=== PATIENT | female | born 1935 | race Caucasian/White ===

== ENCOUNTER 2021-10-31 14:45 | Emergency (ER) | payer MEDICARE ==
[2021-10-31 15:03] VITALS: TEMP 98
[2021-10-31] MEDS ORDERED: SODIUM CHLORIDE 0.9% 1,000 ML IV STA (15:54)
[2021-10-31 16:34] LABS: Basophils % (A) 0 %; Eosinophils % (A) 0 %; HCT 40.3 % (34.0-46.0); HGB 13.3 gm/dL (11.4-16.0); Lymphocytes # (A) 0.6 k/uL (1.0-4.8); Lymphocytes % (A) 12 %; MCH 31.3 pg (25.0-35.0); MCV 94.8 fL (80.0-100.0); Mean Platelet Volume 8.2; Monocytes # (A) 0.3 k/uL (0-1.0); Monocytes % (A) 6 %; Neutrophils % (A) 81 %; Platelet Count 175 k/uL (150-450); RBC 4.26 m/uL (3.80-5.40); RDW 13.5 % (11.5-15.5); WBC 4.9 k/uL (3.8-10.6)
[2021-10-31 16:48] LABS: ALT 20 U/L (4-34); AST 38 U/L (14-36); African American GFR (CKD) >90 (>60 ml/min/1.73 sqM); Albumin 3.2 g/dL (3.5-5.0); Alkaline Phosphatase 83 U/L (38-126); Anion Gap 7 mmol/L; Blood Urea Nitrogen 9 mg/dL (7-17); Carbon Dioxide 23 mmol/L (22-30); Chloride 96 mmol/L (98-107); Glucose 119 mg/dL (74-99); Magnesium 1.6 mg/dL (1.6-2.3); Non-African American GFR(CKD) 88 (>60 ml/min/1.73 sqM); Sodium 126 mmol/L (137-145); Total Bilirubin 0.4 mg/dL (0.2-1.3); Total Protein 5.9 g/dL (6.3-8.2)
[2021-10-31 16:49] LABS: Partial Thromboplastin Time 27.2 sec (22.0-30.0); Prothrombin Time 10.3 sec (9.0-12.0)
[2021-10-31 16:56] LABS: Potassium 3.9 mmol/L (3.5-5.1)
--- NOTE | 2021-10-31 17:11 | XR ---
EXAMINATION TYPE: XR chest 2V DATE OF EXAM: 10/31/2021 COMPARISON: NONE HISTORY: Dizziness TECHNIQUE: 2 views FINDINGS: Heart is enlarged. There is no heart failure. There are no hilar masses. There is slight co arsening of interstitial markings. IMPRESSION: No active cardiopulmonary disease. No heart failure.
[2021-10-31] MEDS ORDERED: ONDANSETRON 4 MG/2 ML VIAL IVP STA ×2 (17:29→19:37)
[2021-10-31 17:47] LABS: Appearance,Urine Clear (Clear); Bilirubin,Urine Negative (Negative); Blood,Urine Negative (Negative); Color,Urine Light Yellow; Glucose,Urine (UA) Negative (Negative); Ketones,Urine Trace (Negative); Leukocyte Esterase,Urine Negative (Negative); Nitrite,Urine Negative (Negative); Protein,Urine Negative (Negative); Specific Gravity,Urine 1.002 (1.001-1.035); Urobilinogen,Urine <2.0 mg/dL (<2.0)
--- NOTE | 2021-10-31 19:26 | ED ---
Dizziness HPI - General Chief Complaint: Syncope Stated Complaint: syncope Time Seen by Provider: 10/31/21 15:53 Source: patient, family, EMS, RN notes reviewed Mode of arrival: EMS Limitations: physical limitation - History of Present Illness Initial Comments: Patient is an 85-year-old female that presents to the emergency Department due to a syncopal episode. Patient's daughter notes the patient got out of the shower was sitting in a chair and just fainted. Patient is Covid-positive 3 days. She notes that she just feels weak and out of it. She notes that she fell couple weeks ago also. Patient denied any other issues or complaints. Daughter notes that she is eating and drinking better than she was prior to her previous hospital visit. Patient notes that she tried eating some soup today but puked it up. Patient otherwise looked well but mildly uncomfortable laying in bed. Patient denied chest pain shortness of breath headache diarrhea constipation fever fatigue chills. - Related Data Allergies Allergy/AdvReac Type Severity Reaction Status Date / Time Sulfa (Sulfonamide Allergy Rash/Hives Verified 10/31/21 16:21 Antibiotics) Review of Systems ROS Statement: Those systems with pertinent positive or pertinent negative responses have been documented in the HPI. ROS Other: All systems not noted in ROS Statement are negative. Past Medical History Past Medical History: No Reported History History of Any Multi-Drug Resistant Organisms: None Reported Past Surgical History: No Surgical Hx Reported Smoking Status: Never smoker Past Alcohol Use History: None Reported Past Drug Use History: None Reported General Exam Limitations: physical limitation General appearance: alert, in no apparent distress Head exam: Present: atraumatic, normocephalic, normal inspection Eye exam: Present: normal appearance, PERRL, EOMI. Absent: scleral icterus, conjunctival injection, periorbital swelling ENT exam: Present: normal exam, mucous membranes moist Neck exam: Present: normal inspection Respiratory exam: Present: normal lung sounds bilaterally. Absent: respiratory distress, wheezes, rales, rhonchi, stridor Cardiovascular Exam: Present: regular rate, normal rhythm, normal heart sounds. Absent: systolic murmur, diastolic murmur, rubs, gallop, clicks GI/Abdominal exam: Present: soft, normal bowel sounds. Absent: distended, tenderness, guarding, rebound, rigid Extremities exam: Present: normal inspection, full ROM, normal capillary refill. Absent: tenderness, pedal edema, joint swelling, calf tenderness Neurological exam: Present: alert, oriented X3 Psychiatric exam: Present: normal affect, normal mood Skin exam: Present: warm, dry, intact, normal color. Absent: rash Course Vital Signs 10/31/21 10/31/21 14:55 18:03 Temperature 98 F Pulse Rate 67 67 Respiratory 20 17 Rate Blood Pressure 142/74 123/78 O2 Sat by Pulse 93 L 96 Oximetry EKG Findings - EKG Comments: EKG Findings:: Ventricular rate 67 bpm, TX interval 152 ms, QRS duration 80 ms, QTC 488 ms, PRT axes 71/7/59, sinus rhythm with premature ventricular complexes, septal infarct age undetermined, abnormal ECG. Medical Decision Making - Medical Decision Making 85-year-old female with a syncopal episode earlier today. Labs, 4 mg of Zofran, EKG, cardiac surgeon, 1 L normal saline, chest x-ray, CT of the brain ordered. Labs: CBC unremarkable, CMP unremarkable, urinalysis unremarkable, coagulation show an elevated d-dimer of 1.41. CT angio of the chest ordered. All imaging negative for any acute processes. Case discussed with Dr. Velasquez, patient can discharge home with follow-up to primary care. Patient and family were informed of the results informed that Covid symptoms can be lingering and cause issues even after feeling better. - Lab Data Result diagrams: 10/31/21 16:15 10/31/21 16:15 Lab Results 10/31/21 10/31/21 10/31/21 Range/Units 16:15 16:15 16:15 WBC 4.9 (3.8-10.6) k/uL RBC 4.26 (3.80-5.40) m/uL Hgb 13.3 (11.4-16.0) gm/dL Hct 40.3 (34.0-46.0) % MCV 94.8 (80.0-100.0) fL MCH 31.3 (25.0-35.0) pg MCHC 33.0 (31.0-37.0) g/dL RDW 13.5 (11.5-15.5) % Plt Count 175 (150-450) k/uL MPV 8.2 Neutrophils % 81 % Lymphocytes % 12 % Monocytes % 6 % Eosinophils % 0 % Basophils % 0 % Neutrophils # 4.0 (1.3-7.7) k/uL Lymphocytes # 0.6 L (1.0-4.8) k/uL Monocytes # 0.3 (0-1.0) k/uL Eosinophils # 0.0 (0-0.7) k/uL Basophils # 0.0 (0-0.2) k/uL PT 10.3 (9.0-12.0) sec INR 1.0 (<1.2) APTT 27.2 (22.0-30.0) sec D-Dimer 1.41 H (<0.60) mg/L FEU Sodium 126 L (137-145) mmol/L Potassium 3.9 (3.5-5.1) mmol/L Chloride 96 L (98-107) mmol/L Carbon Dioxide 23 (22-30) mmol/L Anion Gap 7 mmol/L BUN 9 (7-17) mg/dL Creatinine 0.54 (0.52-1.04) mg/dL Est GFR (CKD-EPI)AfAm >90 (>60 ml/min/1.73 sqM) Est GFR (CKD-EPI)NonAf 88 (>60 ml/min/1.73 sqM) Glucose 119 H (74-99) mg/dL Calcium 8.0 L (8.4-10.2) mg/dL Magnesium 1.6 (1.6-2.3) mg/dL Total Bilirubin 0.4 (0.2-1.3) mg/dL AST 38 H (14-36) U/L ALT 20 (4-34) U/L Alkaline Phosphatase 83 (38-126) U/L Troponin I (0.000-0.034) ng/mL Total Protein 5.9 L (6.3-8.2) g/dL Albumin 3.2 L (3.5-5.0) g/dL Urine Color Urine Appearance (Clear) Urine pH (5.0-8.0) Ur Specific [place] (1.001-1.035) Urine Protein (Negative) Urine Glucose (UA) (Negative) Urine Ketones (Negative) Urine Blood (Negative) Urine Nitrite (Negative) Urine Bilirubin (Negative) Urine Urobilinogen (<2.0) mg/dL Ur Leukocyte Esterase (Negative) 10/31/21 10/31/21 Range/Units 16:15 17:24 WBC (3.8-10.6) k/uL RBC (3.80-5.40) m/uL Hgb (11.4-16.0) gm/dL Hct (34.0-46.0) % MCV (80.0-100.0) fL MCH (25.0-35.0) pg MCHC (31.0-37.0) g/dL RDW (11.5-15.5) % Plt Count (150-450) k/uL MPV Neutrophils % % Lymphocytes % % Monocytes % % Eosinophils % % Basophils % % Neutrophils # (1.3-7.7) k/uL Lymphocytes # (1.0-4.8) k/uL Monocytes # (0-1.0) k/uL Eosinophils # (0-0.7) k/uL Basophils # (0-0.2) k/uL PT (9.0-12.0) sec INR (<1.2) APTT (22.0-30.0) sec D-Dimer (<0.60) mg/L FEU Sodium (137-145) mmol/L Potassium (3.5-5.1) mmol/L Chloride (98-107) mmol/L Carbon Dioxide (22-30) mmol/L Anion Gap mmol/L BUN (7-17) mg/dL Creatinine (0.52-1.04) mg/dL Est GFR (CKD-EPI)AfAm (>60 ml/min/1.73 sqM) Est GFR (CKD-EPI)NonAf (>60 ml/min/1.73 sqM) Glucose (74-99) mg/dL Calcium (8.4-10.2) mg/dL Magnesium (1.6-2.3) mg/dL Total Bilirubin (0.2-1.3) mg/dL AST (14-36) U/L ALT (4-34) U/L Alkaline Phosphatase (38-126) U/L Troponin I <0.012 (0.000-0.034) ng/mL Total Protein (6.3-8.2) g/dL Albumin (3.5-5.0) g/dL Urine Color Light Yellow Urine Appearance Clear (Clear) Urine pH 6.0 (5.0-8.0) Ur Specific [place] 1.002 (1.001-1.035) Urine Protein Negative (Negative) Urine Glucose (UA) Negative (Negative) Urine Ketones Trace H (Negative) Urine Blood Negative (Negative) Urine Nitrite Negative (Negative) Urine Bilirubin Negative (Negative) Urine Urobilinogen <2.0 (<2.0) mg/dL Ur Leukocyte Esterase Negative (Negative) - EKG Data EKG shows normal: sinus rhythm Rate: normal EKG Comments: Ventricular rate 67 bpm, TX interval 152 ms, QRS duration 80 ms, QTC 488 ms, PRT axes 71/7/59, sinus rhythm with premature ventricular complexes, septal infarct age undetermined, abnormal ECG. - Radiology Data Radiology results: report reviewed, image reviewed Chest x-ray: No active cardiopulmonary disease. No heart failure. Brain CT: Mild atrophy. No acute intracranial abnormality. CT of the chest: No evidence of pulmonary embolism. Patchy infiltrates in both lungs are mostly interstitium. No suspicious pulmonary mass. Disposition Clinical Impression: Syncope Disposition: HOME SELF-CARE Condition: Stable Instructions (If sedation given, give patient instructions): Syncope (ED) Additional Instructions: Please return to the Emergency Department if symptoms worsen or any other concerns. Follow-up with primary care in 1-2 days. Hot showers can cause vasovagal responses due to flushing of fluid to the extremities to cool off. Increase oral fluids. Is patient prescribed a controlled substance at d/c from ED?: No Referrals: Kim Hernandez MD [Primary Care Provider] - 1-2 days Time of Disposition: 20:06
--- NOTE | 2021-10-31 19:31 | CT ---
EXAMINATION TYPE: CT brain wo con DATE OF EXAM: 10/31/2021 COMPARISON: None HISTORY: Syncope. CT DLP: 1078.4 mGycm Automated exposure control for dose reduction was used. There is mild cerebral atrophy. There is no mass effect nor midline shift. There is no sign of intrac ranial hemorrhage. Calvarium is intact. There is normal aeration of the mastoid sinuses. Skull base i s intact. IMPRESSION: Mild atrophy. No acute intracranial abnormality.
[2021-10-31] MEDS ORDERED: MORPHINE SULFATE 2 MG/ML SYRINGE IVP ONE (19:37)
--- NOTE | 2021-10-31 19:39 | CT ---
EXAMINATION TYPE: CT chest angio for PE DATE OF EXAM: 10/31/2021 COMPARISON: None HISTORY: Covid, elevated d-dimer. CT DLP: 238.9 mGycm Automated exposure control for dose reduction was used. CONTRAST: Performed with IV Contrast, patient injected with 100 mL of Isovue 370. There are 3-D post processed images. There is coarse predominantly interstitial infiltrate throughout both lungs. There is some patchy ate lectasis at the lung bases. Heart size is normal. There is no pericardial effusion. There is no media stinal adenopathy. There are no hilar masses. There is normal contrast opacification of the pulmonary arteries. There are no filling defects. Thoracic spine is intact. I see no focal bone destruction. There is a mild thoracic kyphosis. Sternum is intact. There is no pleural effusion. IMPRESSION: No evidence of pulmonary embolism. Patchy infiltrates in both lungs are mostly interstitial. No suspicious pulmonary mass.
--- NOTE | 2021-10-31 20:33 | ED ---
Medical Decision Making - Medical Decision Making Patient's daughter requesting patient to get monoclonal antibody infusion due to testing positive for Covid 3 days ago. She does meet criteria and will undergo infusion. She is getting a copy of her positive test and will female that certainly point were filed. - Lab Data Result diagrams: 10/31/21 16:15 10/31/21 16:15 Lab Results 10/31/21 10/31/21 10/31/21 Range/Units 16:15 16:15 16:15 WBC 4.9 (3.8-10.6) k/uL RBC 4.26 (3.80-5.40) m/uL Hgb 13.3 (11.4-16.0) gm/dL Hct 40.3 (34.0-46.0) % MCV 94.8 (80.0-100.0) fL MCH 31.3 (25.0-35.0) pg MCHC 33.0 (31.0-37.0) g/dL RDW 13.5 (11.5-15.5) % Plt Count 175 (150-450) k/uL MPV 8.2 Neutrophils % 81 % Lymphocytes % 12 % Monocytes % 6 % Eosinophils % 0 % Basophils % 0 % Neutrophils # 4.0 (1.3-7.7) k/uL Lymphocytes # 0.6 L (1.0-4.8) k/uL Monocytes # 0.3 (0-1.0) k/uL Eosinophils # 0.0 (0-0.7) k/uL Basophils # 0.0 (0-0.2) k/uL PT 10.3 (9.0-12.0) sec INR 1.0 (<1.2) APTT 27.2 (22.0-30.0) sec D-Dimer 1.41 H (<0.60) mg/L FEU Sodium 126 L (137-145) mmol/L Potassium 3.9 (3.5-5.1) mmol/L Chloride 96 L (98-107) mmol/L Carbon Dioxide 23 (22-30) mmol/L Anion Gap 7 mmol/L BUN 9 (7-17) mg/dL Creatinine 0.54 (0.52-1.04) mg/dL Est GFR (CKD-EPI)AfAm >90 (>60 ml/min/1.73 sqM) Est GFR (CKD-EPI)NonAf 88 (>60 ml/min/1.73 sqM) Glucose 119 H (74-99) mg/dL Calcium 8.0 L (8.4-10.2) mg/dL Magnesium 1.6 (1.6-2.3) mg/dL Total Bilirubin 0.4 (0.2-1.3) mg/dL AST 38 H (14-36) U/L ALT 20 (4-34) U/L Alkaline Phosphatase 83 (38-126) U/L Troponin I (0.000-0.034) ng/mL Total Protein 5.9 L (6.3-8.2) g/dL Albumin 3.2 L (3.5-5.0) g/dL Urine Color Urine Appearance (Clear) Urine pH (5.0-8.0) Ur Specific [place] (1.001-1.035) Urine Protein (Negative) Urine Glucose (UA) (Negative) Urine Ketones (Negative) Urine Blood (Negative) Urine Nitrite (Negative) Urine Bilirubin (Negative) Urine Urobilinogen (<2.0) mg/dL Ur Leukocyte Esterase (Negative) 10/31/21 10/31/21 Range/Units 16:15 17:24 WBC (3.8-10.6) k/uL RBC (3.80-5.40) m/uL Hgb (11.4-16.0) gm/dL Hct (34.0-46.0) % MCV (80.0-100.0) fL MCH (25.0-35.0) pg MCHC (31.0-37.0) g/dL RDW (11.5-15.5) % Plt Count (150-450) k/uL MPV Neutrophils % % Lymphocytes % % Monocytes % % Eosinophils % % Basophils % % Neutrophils # (1.3-7.7) k/uL Lymphocytes # (1.0-4.8) k/uL Monocytes # (0-1.0) k/uL Eosinophils # (0-0.7) k/uL Basophils # (0-0.2) k/uL PT (9.0-12.0) sec INR (<1.2) APTT (22.0-30.0) sec D-Dimer (<0.60) mg/L FEU Sodium (137-145) mmol/L Potassium (3.5-5.1) mmol/L Chloride (98-107) mmol/L Carbon Dioxide (22-30) mmol/L Anion Gap mmol/L BUN (7-17) mg/dL Creatinine (0.52-1.04) mg/dL Est GFR (CKD-EPI)AfAm (>60 ml/min/1.73 sqM) Est GFR (CKD-EPI)NonAf (>60 ml/min/1.73 sqM) Glucose (74-99) mg/dL Calcium (8.4-10.2) mg/dL Magnesium (1.6-2.3) mg/dL Total Bilirubin (0.2-1.3) mg/dL AST (14-36) U/L ALT (4-34) U/L Alkaline Phosphatase (38-126) U/L Troponin I <0.012 (0.000-0.034) ng/mL Total Protein (6.3-8.2) g/dL Albumin (3.5-5.0) g/dL Urine Color Light Yellow Urine Appearance Clear (Clear) Urine pH 6.0 (5.0-8.0) Ur Specific [place] 1.002 (1.001-1.035) Urine Protein Negative (Negative) Urine Glucose (UA) Negative (Negative) Urine Ketones Trace H (Negative) Urine Blood Negative (Negative) Urine Nitrite Negative (Negative) Urine Bilirubin Negative (Negative) Urine Urobilinogen <2.0 (<2.0) mg/dL Ur Leukocyte Esterase Negative (Negative) Disposition Clinical Impression: Syncope Disposition: HOME SELF-CARE Condition: Stable Instructions (If sedation given, give patient instructions): Syncope (ED) Additional Instructions: Please return to the Emergency Department if symptoms worsen or any other concerns. Follow-up with primary care in 1-2 days. Hot showers can cause vasovagal responses due to flushing of fluid to the extremities to cool off. Increase oral fluids. Is patient prescribed a controlled substance at d/c from ED?: No Referrals: Kim Hernandez MD [Primary Care Provider] - 1-2 days
[2021-10-31] MEDS ORDERED: SODIUM CHLORIDE 0.9% 50 ML IVPB ONE (21:00)
[2021-10-31] MEDS ORDERED: BAMLANIVIMAB (EUA) 700 MG, ETESEVIMAB (EUA) 1,400 MG in SODIUM CHLORIDE 0.9% 50 ML IVPB ONE (21:00)
[2021-10-31 22:08] VITALS: BP 127/65; PULSE 66; RESP 20
[2021-10-31] MEDS ORDERED: ONDANSETRON 4 MG ODT STARTER PACK 2 TAB BTL PO STA (22:41)
== END 2021-10-31 23:05 | disposition home or self-care (01) ==
LOC: EC 14:45
DX: R55 Syncope and collapse (principal)
CPT/HCPCS: 36415; 93005; 85379; 80053; 83735; 84484; 85025; 85610; 85730; 81003; 71046; 70450; 71275; 96374; 96376; 99285; J2405; S0119; Q9967; J3490

== ENCOUNTER → 2021-11-16 | Outpatient (CLI) | payer MEDICARE ==
--- NOTE | 2021-11-16 13:40 | US ---
EXAMINATION TYPE: US venous doppler duplex LE LT DATE OF EXAM: 11/16/2021 1:26 PM COMPARISON: NONE CLINICAL HISTORY: R22.42 Localized swelling, mass and lump, left lower leg. Left ankle cramping. No on blood thinners. SIDE PERFORMED: left TECHNIQUE: The lower extremity deep venous system is examined utilizing real time linear array sonog viry with graded compression, doppler sonography and color-flow sonography. VESSELS IMAGED: Common Femoral Vein Deep Femoral Vein Greater Saphenous Vein * Femoral Vein Popliteal Vein Small Saphenous Vein * Proximal Calf Veins (* superficial vessels) Left Leg: Negative for DVT, POSITIVE for SVT in proximal SSV. IMPRESSION: No evidence of DVT at this time. Positive superior vein thrombosis as noted.
== END | disposition home or self-care (01) ==
LOC: RADUSWWP 13:10
PROVIDERS: ATTEND Family Medicine
DX: R22.42 Localized swelling, mass and lump, left lower limb (principal)

== ENCOUNTER 2024-06-24 11:20 | Emergency (ER) | payer MEDICARE ==
[2024-06-24] MEDS ORDERED: SODIUM CHLORIDE 0.9% 500 ML BAG ONE (13:08)
[2024-06-24] MEDS ORDERED: cefTRIAXone IN SWFI 1,000 MG/10 ML SYRINGE IVP ONE (18:03)
[2024-06-24] MEDS ORDERED: WATER FOR INJECTION, STERILE 10 ML VIAL IV ONE (18:08)
== END 2024-06-24 18:33 ==
LOC: EC 11:20
CPT/HCPCS: 80053; 83735; 84439; 84443; 85025; 93005; 96361; 96374; 99283

== ENCOUNTER 2024-09-23 11:29 | Emergency (ER) | payer MEDICARE ==
[2024-09-23 11:53] VITALS: RESP 18
[2024-09-23 13:42] LABS: Appearance,Urine Clear (Clear); Bilirubin,Urine Negative (Negative); Blood,Urine Negative (Negative); Color,Urine Colorless; Glucose,Urine (UA) Negative (Negative); Ketones,Urine Negative (Negative); Leukocyte Esterase,Urine Small (Negative); Nitrite,Urine Negative (Negative); Protein,Urine Negative (Negative); RBC,Urine <1 /hpf (0-5); Specific Gravity,Urine 1.005 (1.001-1.035); Squamous Epithelial Cell,Urine 1 /hpf (0-4); Urobilinogen,Urine <2.0 mg/dL (<2.0); WBC,Urine <1 /hpf (0-5)
--- NOTE | 2024-09-23 14:29 | ED ---
Female Urogenital HPI - General Chief complaint: Urogenital Stated complaint: vaginal discharge/blood Time Seen by Provider: 09/23/24 12:58 Source: patient, family, RN notes reviewed Mode of arrival: ambulatory Limitations: no limitations - History of Present Illness Initial comments: This is an 88-year-old female who presents to the emergency department for vaginal discharge. States that she has been dealing with vaginal discharge since over the summer. At one point she was found to have a UTI and was started on antibiotics. However, states that this did not help with any of the discharge she has been having. It tends to come and go and sometimes it is much heavier than others. States that it is usually white but changes in terms of how thick it is. Denies any odors associated with this. Denies any vaginal itching. She is concerned because this morning she noticed a small tinge of blood in it. MD Complaint: vaginal discharge - Related Data Home Medications Medication Instructions Recorded Confirmed Ascorbic Acid [Vitamin C] 1,000 mg PO DAILY 10/31/21 10/31/21 lisinopriL [Prinivil] 10 mg PO DAILY 10/31/21 10/31/21 Previous Rx's Medication Instructions Recorded metroNIDAZOLE 0.75% VAGINAL 1 applic VAGINAL HS 7 Days #70 gm 09/23/24 [Metrogel Vaginal] Allergies Allergy/AdvReac Type Severity Reaction Status Date / Time Sulfa (Sulfonamide Allergy Rash/Hives Verified 09/23/24 11:53 Antibiotics) Review of Systems ROS Statement: Those systems with pertinent positive or pertinent negative responses have been documented in the HPI. ROS Other: All systems not noted in ROS Statement are negative. 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 Absent: respiratory distress, wheezes, rales, rhonchi, stridor Cardiovascular Exam: Present: regular rate, normal rhythm, normal heart sounds. Absent: systolic murmur, diastolic murmur, rubs, gallop, clicks External exam: Present: normal external exam. Absent: erythema, swelling Speculum exam: Absent: vaginal discharge Neurological exam: Present: alert, oriented X3, CN II-XII intact Psychiatric exam: Present: normal affect, normal mood Course Vital Signs 09/23/24 09/23/24 11:48 14:42 Temperature 97.8 F 98 F Pulse Rate 67 65 Respiratory 18 18 Rate Blood Pressure 152/78 176/84 O2 Sat by Pulse 99 100 Oximetry Medical Decision Making - Medical Decision Making This is an 88-year-old female who presents to the emergency department for vaginal discharge. Was pt. sent in by a medical professional or institution? @ -No Did you speak to anyone other than the patient for history? @ -No Did you review nursing and triage notes? @ -Yes, and I agree, it is accurate with regards to the patient's symptoms. Were old charts reviewed? @ -No Differential Diagnosis? @ -UTI, STI, bacterial vaginosis, yeast infection, this is not meant to be an all-inclusive list. EKG interpreted by me (3pts min.)? @ -Not obtained X-rays interpreted by me (1pt min.)? @ -Not obtained CT interpreted by me (1pt min.)? @ -Not obtained U/S interpreted by me (1pt. min.)? @ -Not obtained What testing was considered but not performed? (CT, X-rays, U/S, labs)? Why? @ -None What meds were considered but not given? Why? @ -None Did you discuss the management of the patient with other professionals? @ -No Did you reconcile home meds? @ -No Was smoking cessation discussed for >3mins.? @ -No Was critical care preformed (if so, how long)? @ -No Were there social determinants of health that impacted care today? How? (Homelessness, low income, unemployed, alcoholism, drug addiction, transportation, low edu. Level, literacy, decrease access to med. care, [facility], rehab)? @ -No Was there de-escalation of care discussed even if they declined? (Discuss DNR or withdrawal of care, Hospice)? @ -No What co-morbidities impacted this encounter? (DM, HTN, Smoking, COPD, CAD, Cancer, CVA, Hep., AIDS, mental health diagnosis, sleep apnea, morbid obesity)? @ -None Was patient admitted / discharged? @ -Discharged. She did not have any discharge or other irregularities on examination. Urinalysis negative for signs of infection. Genital culture was obtained. Advised that it will take a few days to get the results. We can treat her for both possible yeast infection and bacterial vaginosis. She was given the 1 tablet of Diflucan in the emergency department. Prescription for metronidazole provided. Otherwise advised follow-up with her PCP or DIRECTOR OF FINANCE. Patient discharged home in stable condition. Case discussed with ED attending Dr. Beltran. Return precautions reviewed in depth, the patient is instructed to return to the emergency department with any new, worsening, or concerning symptoms. Patient verbalized understanding. Undiagnosed new problem with uncertain prognosis? @ -None Drug Therapy requiring intensive monitoring for toxicity (Heparin, Nitro, Insulin, Cardizem)? @ -None Were any procedures done? @ -None Diagnosis/symptom? @ -Vaginal discharge Acute, or Chronic, or Acute on Chronic? @ -Acute Uncomplicated (without systemic symptoms) or Complicated (systemic symptoms)? @ -Uncomplicated Side effects of treatment? @ -None Exacerbation, Progression, or Severe Exacerbation] @ -Not applicable Poses a threat to life or bodily function? @ -No - Lab Data Lab Results 09/23/24 Range/Units 12:48 Urine Color Colorless Urine Appearance Clear (Clear) Urine pH 6.0 (5.0-8.0) Ur Specific [place] 1.005 (1.001-1.035) Urine Protein Negative (Negative) Urine Glucose (UA) Negative (Negative) Urine Ketones Negative (Negative) Urine Blood Negative (Negative) Urine Nitrite Negative (Negative) Urine Bilirubin Negative (Negative) Urine Urobilinogen <2.0 (<2.0) mg/dL Ur Leukocyte Esterase Small H (Negative) Urine RBC <1 (0-5) /hpf Urine WBC <1 (0-5) /hpf Ur Squamous Epith Cells 1 (0-4) /hpf Disposition Clinical Impression: Vaginal discharge Disposition: HOME SELF-CARE Instructions (If sedation given, give patient instructions): Vaginal Discharge (ED) Additional Instructions: Return to the emergency department with any new, worsening, or concerning symptoms. Apply the metronidazole cream each night for 5 days. Follow up with your primary care provider in 1-2 days. Prescriptions: metroNIDAZOLE 0.75% VAGINAL [Metrogel Vaginal] 1 applic VAGINAL HS 7 Days #70 gm Is patient prescribed a controlled substance at d/c from ED?: No Referrals: Jake Wade MD [Primary Care Provider] - 1-2 days Time of Disposition: 14:29
[2024-09-23] MEDS: FLUCONAZOLE 150 MG TAB PO STA (14:39)
[2024-09-23 14:43] VITALS: PULSE 65; TEMP 98
[2024-09-23 14:45] VITALS: BP 176/84
== END 2024-09-23 14:47 | disposition home or self-care (01) ==
LOC: EC 11:29
DX: N89.8 Other specified noninflammatory disorders of vagina (principal); Z88.2 Allergy status to sulfonamides
CPT/HCPCS: 81001; 87070; 99283

== ENCOUNTER 2025-01-29 07:57 | Emergency (ER) | payer MEDICARE ==
[2025-01-29 08:03] VITALS: TEMP 98
--- NOTE | 2025-01-29 08:42 | XR ---
EXAMINATION TYPE: XR chest 2V DATE OF EXAM: 01/29/2025 CLINICAL INDICATION: Female, 89 years old with history of cough, TECHNIQUE: Frontal and lateral views of the chest are obtained. COMPARISON: Chest x-ray October 31, 2021 FINDINGS: There is chronic parenchymal changes without suspicious focal air space opacity, pleural e ffusion, or pneumothorax seen. Persistent cardiomegaly. The osseous structures remain demineralized . IMPRESSION: Chronic changes and cardiomegaly without acute pulmonary process. [facility], , 01/29/2025 8:39 AM
[2025-01-29 09:07] LABS: Influenza A Not Detected (Not Detectd); Influenza B Not Detected (Not Detectd); RSV Not Detected (Not Detectd)
--- NOTE | 2025-01-29 09:19 | ED ---
General Adult HPI - General Chief complaint: Upper Respiratory Infection Stated complaint: cough, back pain Time Seen by Provider: 01/29/25 08:05 Source: patient, family, RN notes reviewed Mode of arrival: ambulatory Limitations: no limitations - History of Present Illness Initial comments: 89-year-old female presents emergency department complaint of cough congestion and rib back pain. Patient states is only when she coughs she has no resting chest or back pain. Patient reports cough, cold chills. Patient also mention increasing nasal congestion. Patient denies any sick contacts denies any headache dizziness no abdominal complaints. - Related Data Home Medications Medication Instructions Recorded Confirmed Ascorbic Acid [Vitamin C] 1,000 mg PO DAILY 10/31/21 10/31/21 lisinopriL [Prinivil] 10 mg PO DAILY 10/31/21 10/31/21 Previous Rx's Medication Instructions Recorded metroNIDAZOLE 0.75% VAGINAL 1 applic VAGINAL HS 7 Days #70 gm 09/23/24 [Metrogel Vaginal] Azithromycin [Zithromax Z Pack] 0 tab PO DIRECTED #6 tab 01/29/25 Benzonatate [Tessalon Perles] 100 mg PO TID PRN #15 capsule 01/29/25 Allergies Allergy/AdvReac Type Severity Reaction Status Date / Time ciprofloxacin [From Cipro] Allergy Unknown Verified 01/29/25 08:03 Sulfa (Sulfonamide Allergy Rash/Hives Verified 09/23/24 11:53 Antibiotics) doxycycline AdvReac Nausea & Verified 01/29/25 08:03 Vomiting Review of Systems ROS Statement: Those systems with pertinent positive or pertinent negative responses have been documented in the HPI. ROS Other: All systems not noted in ROS Statement are negative. 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 Absent: scleral icterus, conjunctival injection, periorbital swelling ENT exam: Present: normal exam, normal oropharynx, mucous membranes moist Neck exam: Present: normal inspection, full ROM. Absent: tenderness, meningismus, lymphadenopathy Respiratory exam: Present: normal lung sounds bilaterally. Absent: respiratory distress, wheezes, rales, rhonchi, stridor Cardiovascular Exam: Present: regular rate, normal rhythm, normal heart sounds. Absent: systolic murmur, diastolic murmur, rubs, gallop, clicks Course Vital Signs 01/29/25 01/29/25 07:59 08:26 Temperature 98 F Pulse Rate 68 Respiratory 18 16 Rate Blood Pressure 178/75 O2 Sat by Pulse 99 Oximetry Medical Decision Making - Medical Decision Making Was pt. sent in by a medical professional or institution (SUKHJINDER Ford, MANAGER [employer]UP[employer], urgent care, hospital, or alf...) When possible be specific @ -No Did you speak to anyone other than the patient for history (EMS, parent, family, police, friend...)? What history was obtained from this source @ -No Did you review nursing and triage notes (agree or disagree)? Why? @ -I reviewed and agree with nursing and triage notes Were old charts reviewed (outside hosp., previous admission, EMS record, old EKG, old radiological studies, urgent care reports/EKG's, alf records)? Report findings @ -No old charts were reviewed Differential Diagnosis (chest pain, altered mental status, abdominal pain women, abdominal pain men, vaginal bleeding, weakness, fever, dyspnea, syncope, headache, dizziness, GI bleed, back pain, seizure, CVA, palpatations, mental health, musculoskeletal)? @ -COVID 19, RSV, influenza, pneumonia, acute bronchitis, URI, this list is not all inclusive EKG interpreted by me (3pts min.). @ -None X-rays interpreted by me (1pt min.). @ -Chest x-ray shows no acute cardiopulmonary process. CT interpreted by me (1pt min.). @ -None done U/S interpreted by me (1pt. min.). @ -None done What testing was considered but not performed or refused? (CT, X-rays, U/S, labs)? Why? @ -None What meds were considered but not given or refused? Why? @ -None Did you discuss the management of the patient with other professionals (professionals i.e. , PA, MANAGER [employer]CCUP[employer], lab, RT, psych nurse, social science analyst, iron and steel work supervisor, teacher, building drafting officer, correctional counselor/case manager)? Give summary @ -No Was smoking cessation discussed for >3mins.? @ -No Was critical care preformed (if so, how long)? @ -No Were there social determinants of health that impacted care today? How? (Homelessness, low income, unemployed, alcoholism, drug addiction, transportation, low edu. Level, literacy, decrease access to med. care, long-term, rehab)? @ -No Was there de-escalation of care discussed even if they declined (Discuss DNR or withdrawal of care, Hospice)? DNR status @ -No What co-morbidities impacted this encounter? (DM, HTN, Smoking, COPD, CAD, Cancer, CVA, ARF, Chemo, Hep., AIDS, mental health diagnosis, sleep apnea, morbid obesity)? @ -None Was patient admitted / discharged? Hospital course, mention meds given and route, prescriptions, significant lab abnormalities, going to OR and other pertinent info. @ -Discharge patient has acute tracheobronchitis patient has negative Cepheid patient discharged on azithromycin patient will close follow-up return parameters alicja. Undiagnosed new problem with uncertain prognosis? @ -No Drug Therapy requiring intensive monitoring for toxicity (Heparin, Nitro, Insulin, Cardizem)? @ -No Were any procedures done? @ -No Diagnosis/symptom? @ -Acute tracheobronchitis Acute, or Chronic, or Acute on Chronic? @ -Acute Uncomplicated (without systemic symptoms) or Complicated (systemic symptoms)? @ -Uncomplicated Side effects of treatment? @ -No Exacerbation, Progression, or Severe Exacerbation? @ -No Poses a threat to life or bodily function? How? (Chest pain, [place], [place], pneumonia, PE, COPD, DKA, ARF, appy, cholecystitis, CVA, Diverticulitis, Homicidal, Suicidal, threat to staff... and all critical care pts) @ -No - Lab Data Lab Results 01/29/25 Range/Units 08:24 Influenza Type A (PCR) Not Detected (Not Detectd) Influenza Type B (PCR) Not Detected (Not Detectd) RSV (PCR) Not Detected (Not Detectd) SARS-CoV-2 (PCR) Not Detected (Not Detectd) Disposition Clinical Impression: Acute tracheobronchitis Disposition: HOME SELF-CARE Condition: Stable Instructions (If sedation given, give patient instructions): Upper Respiratory Infection (ED) Additional Instructions: Please return to the Emergency Department if symptoms worsen or any other concerns. Prescriptions: Benzonatate [Tessalon Perles] 100 mg PO TID PRN #15 capsule PRN Reason: cough Azithromycin [Zithromax Z Pack] 0 tab PO DIRECTED #6 tab Is patient prescribed a controlled substance at d/c from ED?: No Referrals: Jake Wade MD [Primary Care Provider] - 1-2 days Time of Disposition: 09:17
[2025-01-29 09:35] VITALS: BP 160/82; PULSE 67; RESP 18
== END 2025-01-29 09:49 | disposition home or self-care (01) ==
LOC: EC 07:57
DX: J20.9 Acute bronchitis, unspecified (principal)
CPT/HCPCS: 71046; 87636; 99283